=== PATIENT | female | born 1990 | race Caucasian/White ===

== ENCOUNTER 2017-11-09 14:10 | Inpatient (IN) | payer OTHER ==
[2017-11-09] MEDS: LACTATED RINGER'S 1,000 ML IV (16:26)
[2017-11-09] MEDS: BETAMET NA PHOS/AC(6 MG/ML) 5ML INJ IM (16:39)
[2017-11-09 16:49] LABS: ADD MAN DIFF? NO
[2017-11-09 16:56] LABS: BASOPHIL # 0.1 10^3/ul (0.0-0.1); BASOPHILS % 0.5 % (0.0-2.0); EOSINOPHILS # 0.1 10^3/ul (0.0-0.5); EOSINOPHILS % 0.6 % (0.0-7.0); HEMATOCRIT 40.1 % (37.0-47.0); HEMOGLOBIN 13.6 g/dl (12.0-16.0); LYMPHOCYTES # 1.7 10^3/ul (0.8-2.9); LYMPHOCYTES % 15.8 % (15.0-51.0); MEAN CORPUSCULAR HEMOGLOBIN 29.7 pg (29.0-33.0); MEAN CORPUSCULAR HGB CONC 33.9 g/dl (32.0-37.0); MEAN CORPUSCULAR VOLUME 87.6 fl (82.0-101.0); MEAN PLATELET VOLUME 9.3 fl (7.4-10.4); MONOCYTE # 0.8 10^3/ul (0.3-0.9); MONOCYTES % 7.3 % (0.0-11.0); NEUTROPHIL # 8.2 10^3/ul (1.6-7.5); NEUTROPHILS % 75.2 % (39.0-77.0); PLATELET COUNT 364 10^3/UL (140-415); RED BLOOD COUNT 4.58 10^6/ul (4.20-5.40); RED CELL DISTRIBUTION WIDTH 12.8 % (11.5-14.5)
[2017-11-09 16:56] LABS: WHITE BLOOD COUNT 10.9 10^3/ul (4.8-10.8)
[2017-11-09] MEDS: MAGNESIUM SULFATE 4 GM/100 ML 100 ML IV (16:58)
[2017-11-09 16:59] LABS: ADD UMIC NO; UR ASCORBIC ACID NEGATIVE (NEGATIVE); UR BILIRUBIN (Dip) NEGATIVE (NEGATIVE); UR BLOOD (Dip) NEGATIVE (NEGATIVE); UR CLARITY CLEAR (CLEAR); UR COLOR STRAW (YELLOW); UR GLUCOSE (Dip) NEGATIVE (NEGATIVE); UR KETONES (Dip) NEGATIVE (NEGATIVE); UR LEUKOCYTE ESTERASE (Dip) NEGATIVE Leu/ul (NEGATIVE); UR NITRITE (Dip) NEGATIVE (NEGATIVE); UR SPECIFIC GRAVITY (Dip) 1.009 (1.003-1.030); UR TOTAL PROTEIN (Dip) NEGATIVE (NEGATIVE); UR UROBILINOGEN (Dip) NEGATIVE (NEGATIVE)
[2017-11-09 17:16] LABS: INR 0.87; PROTIME 11.9 Sec (11.9-14.9); PT RATIO 0.9
[2017-11-09 17:17] LABS: PARTIAL THROMBOPLASTIN TIME 31.1 Sec (25.0-35.0)
[2017-11-09] MEDS: MAGNESIUM SULFATE 20 GM/500 ML 500 ML IV (17:25)
[2017-11-09 17:30] LABS: ALANINE AMINOTRANSFERASE 27 IU/L (13-69); ALBUMIN/GLOBULIN RATIO 1.02; ALKALINE PHOSPHATASE 107 IU/L (42-121); ANION GAP 16 (8-16); ASPARTATE AMINO TRANSFERASE 23 IU/L (15-46); BLOOD UREA NITROGEN 8 mg/dl (7-20); CALCIUM 9.7 mg/dl (8.4-10.2); CARBON DIOXIDE 25 mmol/L (21-31); CHLORIDE 104 mmol/L (97-110); CREATININE 0.54 mg/dl (0.44-1.00); GLUCOSE 92 mg/dl (70-220); POTASSIUM 3.7 mmol/L (3.5-5.1); SODIUM 141 mmol/L (135-144); TOTAL PROTEIN 7.9 g/dl (6.1-8.1); URIC ACID 5.5 mg/dl (3.1-7.9)
[2017-11-09 18:01] LABS: HEPATITIS B SURFACE ANTIGEN NEGATIVE (NEGATIVE)
[2017-11-09 18:53] LABS: MAGNESIUM 4.2 mg/dl (1.7-2.5)
[2017-11-10 01:32] LABS: MAGNESIUM 5.5 mg/dl (1.7-2.5)
[2017-11-10] MEDS: MAGNESIUM SULFATE 20 GM/500 ML 500 ML IV (03:38)
[2017-11-10] MEDS: LACTATED RINGER'S 1,000 ML IV ×2 (05:01→15:46)
[2017-11-10 07:23] LABS: MAGNESIUM 5.9 mg/dl (1.7-2.5)
[2017-11-10] MEDS: ACETAMINOPHEN 325 MG TAB PO (11:00)
[2017-11-10 15:25] LABS: RAPID PLASMA REAGIN NONREACTIVE (NR)
[2017-11-10] MEDS: BETAMET NA PHOS/AC(6 MG/ML) 5ML INJ IM (16:45)
[2017-11-10 18:39] LABS: COLLECTION PERIOD 24 hrs; SCRET 0.54 mg/dl (0.44-1.00); VOLUME 5200 ml/24hrs
[2017-11-10 18:40] LABS: CREATININE CLEARANCE 173.3 mls/min (84.0-162.0); CREATININE,URINE RANDOM 25.91 mg/dl (20-320)
[2017-11-10 18:44] LABS: VOLUME 5200 mls
[2017-11-10 18:48] LABS: COLLECTION PERIOD 24 hrs
[2017-11-10 23:18] LABS: ADD MAN DIFF? NO
[2017-11-10 23:24] LABS: BASOPHILS % 0.1 % (0.0-2.0); HEMATOCRIT 37.5 % (37.0-47.0); HEMOGLOBIN 12.8 g/dl (12.0-16.0); LYMPHOCYTES % 6.9 % (15.0-51.0); MEAN CORPUSCULAR HEMOGLOBIN 30.1 pg (29.0-33.0); MEAN CORPUSCULAR HGB CONC 34.1 g/dl (32.0-37.0); MEAN CORPUSCULAR VOLUME 88.2 fl (82.0-101.0); MEAN PLATELET VOLUME 9.2 fl (7.4-10.4); MONOCYTE # 0.3 10^3/ul (0.3-0.9); MONOCYTES % 1.9 % (0.0-11.0); NEUTROPHIL # 13.5 10^3/ul (1.6-7.5); PLATELET COUNT 398 10^3/UL (140-415); RED BLOOD COUNT 4.25 10^6/ul (4.20-5.40); RED CELL DISTRIBUTION WIDTH 12.8 % (11.5-14.5)
[2017-11-10 23:43] LABS: ALANINE AMINOTRANSFERASE 22 IU/L (13-69); ALBUMIN 3.8 g/dl (3.3-4.9); ALBUMIN/GLOBULIN RATIO 1.05; ALKALINE PHOSPHATASE 112 IU/L (42-121); ANION GAP 19 (8-16); ASPARTATE AMINO TRANSFERASE 23 IU/L (15-46); BLOOD UREA NITROGEN 9 mg/dl (7-20); CALCIUM 9.1 mg/dl (8.4-10.2); CARBON DIOXIDE 20 mmol/L (21-31); CHLORIDE 105 mmol/L (97-110); CREATININE 0.55 mg/dl (0.44-1.00); GLUCOSE 146 mg/dl (70-220); POTASSIUM 4.3 mmol/L (3.5-5.1); SODIUM 140 mmol/L (135-144); TOTAL PROTEIN 7.4 g/dl (6.1-8.1); URIC ACID 6.2 mg/dl (3.1-7.9)
[2017-11-11] LABS: INR 0.82; PROTIME 11.4 Sec (11.9-14.9); PT RATIO 0.9
[2017-11-11 00:01] LABS: PARTIAL THROMBOPLASTIN TIME 29.9 Sec (25.0-35.0)
[2017-11-11 00:24] LABS: ADD UMIC NO; UR ASCORBIC ACID NEGATIVE (NEGATIVE); UR BILIRUBIN (Dip) NEGATIVE (NEGATIVE); UR BLOOD (Dip) NEGATIVE (NEGATIVE); UR CLARITY CLEAR (CLEAR); UR COLOR STRAW (YELLOW); UR GLUCOSE (Dip) NEGATIVE (NEGATIVE); UR KETONES (Dip) TRACE mg/dL (NEGATIVE); UR LEUKOCYTE ESTERASE (Dip) NEGATIVE Leu/ul (NEGATIVE); UR NITRITE (Dip) NEGATIVE (NEGATIVE); UR SPECIFIC GRAVITY (Dip) 1.009 (1.003-1.030); UR TOTAL PROTEIN (Dip) NEGATIVE (NEGATIVE); UR UROBILINOGEN (Dip) NEGATIVE (NEGATIVE)
[2017-11-11] MEDS: LACTATED RINGER'S 1,000 ML IV (00:46)
[2017-11-13 10:26] LABS: ADD UMIC YES; UR ASCORBIC ACID NEGATIVE (NEGATIVE); UR BACTERIA FEW /HPF (NONE SEEN); UR BILIRUBIN (Dip) NEGATIVE (NEGATIVE); UR BLOOD (Dip) NEGATIVE (NEGATIVE); UR CLARITY SLIGHTLY CLOUDY (CLEAR); UR COLOR YELLOW (YELLOW); UR GLUCOSE (Dip) NEGATIVE (NEGATIVE); UR KETONES (Dip) NEGATIVE (NEGATIVE); UR LEUKOCYTE ESTERASE (Dip) 2+ Leu/ul (NEGATIVE); UR NITRITE (Dip) NEGATIVE (NEGATIVE); UR RBC 1 /HPF (0-5); UR SQUAMOUS EPITHELIAL CELL FEW /HPF (FEW); UR TOTAL PROTEIN (Dip) NEGATIVE (NEGATIVE); UR UROBILINOGEN (Dip) NEGATIVE (NEGATIVE); UR WBC 3 /HPF (0-5)
[2017-11-13 13:49] LABS: ADD MAN DIFF? NO
[2017-11-13 13:57] LABS: WHITE BLOOD COUNT 16.1 10^3/ul (4.8-10.8)
[2017-11-13 13:57] LABS: BASOPHIL # 0.1 10^3/ul (0.0-0.1); BASOPHILS % 0.3 % (0.0-2.0); EOSINOPHILS # 0.1 10^3/ul (0.0-0.5); EOSINOPHILS % 0.4 % (0.0-7.0); HEMATOCRIT 41.1 % (37.0-47.0); HEMOGLOBIN 14.2 g/dl (12.0-16.0); LYMPHOCYTES # 2.7 10^3/ul (0.8-2.9); LYMPHOCYTES % 16.6 % (15.0-51.0); MEAN CORPUSCULAR HEMOGLOBIN 30.1 pg (29.0-33.0); MEAN CORPUSCULAR HGB CONC 34.5 g/dl (32.0-37.0); MEAN CORPUSCULAR VOLUME 87.1 fl (82.0-101.0); MEAN PLATELET VOLUME 9.5 fl (7.4-10.4); MONOCYTE # 1.2 10^3/ul (0.3-0.9); MONOCYTES % 7.4 % (0.0-11.0); NEUTROPHIL # 11.9 10^3/ul (1.6-7.5); PLATELET COUNT 448 10^3/UL (140-415); RED BLOOD COUNT 4.72 10^6/ul (4.20-5.40); RED CELL DISTRIBUTION WIDTH 12.7 % (11.5-14.5)
[2017-11-13 14:14] LABS: INR 0.84; PROTIME 11.6 Sec (11.9-14.9); PT RATIO 0.9
[2017-11-13 14:15] LABS: PARTIAL THROMBOPLASTIN TIME 29.9 Sec (25.0-35.0)
[2017-11-13 14:17] LABS: URIC ACID 6.9 mg/dl (3.1-7.9)
[2017-11-13 14:18] LABS: ALANINE AMINOTRANSFERASE 23 IU/L (13-69); ALBUMIN 4.2 g/dl (3.3-4.9); ALBUMIN/GLOBULIN RATIO 1.13; ALKALINE PHOSPHATASE 111 IU/L (42-121); ANION GAP 21 (8-16); ASPARTATE AMINO TRANSFERASE 22 IU/L (15-46); BILIRUBIN,INDIRECT 0.1 mg/dl (0-1.1); BILIRUBIN,TOTAL 0.1 mg/dl (0.2-1.3); BLOOD UREA NITROGEN 14 mg/dl (7-20); CALCIUM 9.8 mg/dl (8.4-10.2); CARBON DIOXIDE 20 mmol/L (21-31); CHLORIDE 99 mmol/L (97-110); CREATININE 0.58 mg/dl (0.44-1.00); GLUCOSE 98 mg/dl (70-220); POTASSIUM 4.1 mmol/L (3.5-5.1); SODIUM 136 mmol/L (135-144); TOTAL PROTEIN 7.9 g/dl (6.1-8.1)
[2017-11-13 16:49] LABS: FIBRIN SPLIT PRODUCT <10 ug/ml (<10)
[2017-11-14 09:04] LABS: ADD MAN DIFF? NO
[2017-11-14 09:25] LABS: BASOPHILS % 0.3 % (0.0-2.0); EOSINOPHILS # 0.1 10^3/ul (0.0-0.5); EOSINOPHILS % 0.5 % (0.0-7.0); HEMATOCRIT 39.6 % (37.0-47.0); HEMOGLOBIN 13.6 g/dl (12.0-16.0); LYMPHOCYTES # 2.2 10^3/ul (0.8-2.9); LYMPHOCYTES % 16.6 % (15.0-51.0); MEAN CORPUSCULAR HEMOGLOBIN 30.2 pg (29.0-33.0); MEAN CORPUSCULAR HGB CONC 34.3 g/dl (32.0-37.0); MEAN CORPUSCULAR VOLUME 87.8 fl (82.0-101.0); MEAN PLATELET VOLUME 9.3 fl (7.4-10.4); MONOCYTE # 1.1 10^3/ul (0.3-0.9); MONOCYTES % 8.1 % (0.0-11.0); NEUTROPHIL # 9.7 10^3/ul (1.6-7.5); NEUTROPHILS % 73.4 % (39.0-77.0); PLATELET COUNT 420 10^3/UL (140-415); RED BLOOD COUNT 4.51 10^6/ul (4.20-5.40); RED CELL DISTRIBUTION WIDTH 12.8 % (11.5-14.5)
[2017-11-14 09:25] LABS: WHITE BLOOD COUNT 13.2 10^3/ul (4.8-10.8)
[2017-11-14] MEDS: FERROUS SULFATE (EC) 325 MG TAB PO (09:25)
[2017-11-14] MEDS: DOCUSATE SODIUM 100 MG CAP PO (09:25)
[2017-11-14] MEDS: PRENATAL VITAMIN PO (09:25)
[2017-11-14] MEDS: ASPIRIN 81 MG TAB PO (09:28)
[2017-11-14 09:42] LABS: ALANINE AMINOTRANSFERASE 25 IU/L (13-69); ALBUMIN/GLOBULIN RATIO 1.17; ALKALINE PHOSPHATASE 115 IU/L (42-121); ANION GAP 16 (8-16); ASPARTATE AMINO TRANSFERASE 17 IU/L (15-46); BILIRUBIN,INDIRECT 0.3 mg/dl (0-1.1); BILIRUBIN,TOTAL 0.3 mg/dl (0.2-1.3); BLOOD UREA NITROGEN 14 mg/dl (7-20); CALCIUM 8.9 mg/dl (8.4-10.2); CARBON DIOXIDE 24 mmol/L (21-31); CHLORIDE 100 mmol/L (97-110); GLUCOSE 81 mg/dl (70-220); POTASSIUM 4.2 mmol/L (3.5-5.1); SODIUM 136 mmol/L (135-144); TOTAL PROTEIN 7.4 g/dl (6.1-8.1)
[2017-11-14] MEDS ORDERED: PNEUMOCOCCAL VACCINE 0.5 ML INJ (DISPENSING) IM* (23:00)
[2017-11-14] MEDS ORDERED: INFLUENZA VIRUS VACCINE 0.5 ML (DISPENSING) IM* (23:00)
[2017-11-15] MEDS: ASPIRIN 81 MG TAB PO (09:09)
[2017-11-15] MEDS: DOCUSATE SODIUM 100 MG CAP PO (09:09)
[2017-11-15] MEDS: PRENATAL VITAMIN PO (09:09)
[2017-11-15] MEDS: FERROUS SULFATE (EC) 325 MG TAB PO (09:09)
[2017-11-15] MEDS: INFLUENZA VIRUS VACCINE 0.5 ML (DISPENSING) IM* (09:10)
[2017-11-16] MEDS: PRENATAL VITAMIN PO (09:00)
[2017-11-16] MEDS: DOCUSATE SODIUM 100 MG CAP PO (09:48)
[2017-11-16] MEDS: FERROUS SULFATE (EC) 325 MG TAB PO (09:48)
[2017-11-16] MEDS: ASPIRIN 81 MG TAB PO (09:48)
[2017-11-17] MEDS: ASPIRIN 81 MG TAB PO (09:27)
[2017-11-17] MEDS: FERROUS SULFATE (EC) 325 MG TAB PO (09:27)
[2017-11-17] MEDS: DOCUSATE SODIUM 100 MG CAP PO (09:27)
[2017-11-17] MEDS: PRENATAL VITAMIN PO (09:27)
[2017-11-18] MEDS: DOCUSATE SODIUM 100 MG CAP PO (09:26)
[2017-11-18] MEDS: ASPIRIN 81 MG TAB PO (09:26)
[2017-11-18] MEDS: FERROUS SULFATE (EC) 325 MG TAB PO (09:26)
[2017-11-18] MEDS: PRENATAL VITAMIN PO (09:26)
[2017-11-19] MEDS: PRENATAL VITAMIN PO (09:00)
[2017-11-19] MEDS: DOCUSATE SODIUM 100 MG CAP PO (09:00)
[2017-11-19] MEDS: ASPIRIN 81 MG TAB PO (09:01)
[2017-11-19] MEDS: FERROUS SULFATE (EC) 325 MG TAB PO (09:01)
[2017-11-20] MEDS: ASPIRIN 81 MG TAB PO (08:32)
[2017-11-20] MEDS: FERROUS SULFATE (EC) 325 MG TAB PO (08:32)
[2017-11-20] MEDS: DOCUSATE SODIUM 100 MG CAP PO (08:32)
[2017-11-20] MEDS: PRENATAL VITAMIN PO (08:32)
[2017-11-21] MEDS: PRENATAL VITAMIN PO (09:04)
[2017-11-21] MEDS: DOCUSATE SODIUM 100 MG CAP PO (09:04)
[2017-11-21] MEDS: ASPIRIN 81 MG TAB PO (09:04)
[2017-11-21] MEDS: FERROUS SULFATE (EC) 325 MG TAB PO (09:04)
[2017-11-22] MEDS: PRENATAL VITAMIN PO (08:55)
[2017-11-22] MEDS: FERROUS SULFATE (EC) 325 MG TAB PO (08:55)
[2017-11-22] MEDS: DOCUSATE SODIUM 100 MG CAP PO (08:55)
[2017-11-22] MEDS: ASPIRIN 81 MG TAB PO (08:55)
[2017-11-23] MEDS: FERROUS SULFATE (EC) 325 MG TAB PO (09:17)
[2017-11-23] MEDS: DOCUSATE SODIUM 100 MG CAP PO (09:17)
[2017-11-23] MEDS: ASPIRIN 81 MG TAB PO (09:17)
[2017-11-23] MEDS: PRENATAL VITAMIN PO (09:17)
[2017-11-24] MEDS: PRENATAL VITAMIN PO (09:14)
[2017-11-24] MEDS: FERROUS SULFATE (EC) 325 MG TAB PO (09:14)
[2017-11-24] MEDS: DOCUSATE SODIUM 100 MG CAP PO (09:14)
[2017-11-24] MEDS: ASPIRIN 81 MG TAB PO (09:14)
[2017-11-25] MEDS: PRENATAL VITAMIN PO (08:19)
[2017-11-25] MEDS: DOCUSATE SODIUM 100 MG CAP PO (08:20)
[2017-11-25] MEDS: FERROUS SULFATE (EC) 325 MG TAB PO (08:20)
[2017-11-26] MEDS: PRENATAL VITAMIN PO (08:46)
[2017-11-26] MEDS: DOCUSATE SODIUM 100 MG CAP PO (08:46)
[2017-11-26] MEDS: FERROUS SULFATE (EC) 325 MG TAB PO (08:46)
[2017-11-27] MEDS: PRENATAL VITAMIN PO (09:10)
[2017-11-27] MEDS: FERROUS SULFATE (EC) 325 MG TAB PO (09:10)
[2017-11-27] MEDS: DOCUSATE SODIUM 100 MG CAP PO (09:10)
[2017-11-28] MEDS: PRENATAL VITAMIN PO (08:39)
[2017-11-28] MEDS: DOCUSATE SODIUM 100 MG CAP PO (08:40)
[2017-11-28] MEDS: FERROUS SULFATE (EC) 325 MG TAB PO (08:40)
[2017-11-28 12:06] LABS: ADD MAN DIFF? NO
[2017-11-28 12:24] LABS: BASOPHILS % 0.2 % (0.0-2.0); EOSINOPHILS # 0.1 10^3/ul (0.0-0.5); EOSINOPHILS % 0.5 % (0.0-7.0); HEMATOCRIT 39.7 % (37.0-47.0); HEMOGLOBIN 13.6 g/dl (12.0-16.0); LYMPHOCYTES # 1.6 10^3/ul (0.8-2.9); LYMPHOCYTES % 15.6 % (15.0-51.0); MEAN CORPUSCULAR HEMOGLOBIN 30.1 pg (29.0-33.0); MEAN CORPUSCULAR HGB CONC 34.3 g/dl (32.0-37.0); MEAN CORPUSCULAR VOLUME 87.8 fl (82.0-101.0); MEAN PLATELET VOLUME 9.4 fl (7.4-10.4); MONOCYTE # 0.8 10^3/ul (0.3-0.9); MONOCYTES % 7.3 % (0.0-11.0); NEUTROPHIL # 7.8 10^3/ul (1.6-7.5); NEUTROPHILS % 75.8 % (39.0-77.0); PLATELET COUNT 329 10^3/UL (140-415); RED BLOOD COUNT 4.52 10^6/ul (4.20-5.40); RED CELL DISTRIBUTION WIDTH 12.7 % (11.5-14.5)
[2017-11-28 12:24] LABS: WHITE BLOOD COUNT 10.3 10^3/ul (4.8-10.8)
[2017-11-28 12:57] LABS: INR 0.85; PROTIME 11.7 Sec (11.9-14.9); PT RATIO 0.9
[2017-11-28 12:58] LABS: ALANINE AMINOTRANSFERASE 23 IU/L (13-69); ALBUMIN 3.8 g/dl (3.3-4.9); ALBUMIN/GLOBULIN RATIO 1.15; ALKALINE PHOSPHATASE 124 IU/L (42-121); ANION GAP 15 (8-16); ASPARTATE AMINO TRANSFERASE 18 IU/L (15-46); BLOOD UREA NITROGEN 10 mg/dl (7-20); CALCIUM 9.3 mg/dl (8.4-10.2); CARBON DIOXIDE 23 mmol/L (21-31); CHLORIDE 100 mmol/L (97-110); CREATININE 0.51 mg/dl (0.44-1.00); GLUCOSE 90 mg/dl (70-220); PARTIAL THROMBOPLASTIN TIME 30.9 Sec (25.0-35.0); POTASSIUM 3.7 mmol/L (3.5-5.1); SODIUM 134 mmol/L (135-144); TOTAL PROTEIN 7.1 g/dl (6.1-8.1)
[2017-11-28] MEDS ORDERED: CARBOPROST 250 MCG INJ IM (18:00)
[2017-11-28] MEDS ORDERED: MISOPROSTOL 200 MCG TAB PR (18:00)
[2017-11-28] MEDS ORDERED: METHYLERGONOVINE 0.2 MG INJ IM (18:00)
[2017-11-28] MEDS ORDERED: OXYTOCIN 30 UNITS/LR 500 ML IV (18:00)
[2017-11-29] MEDS ORDERED: CLINDAMYCIN 900 MG/D5W (PMX) 50 ML IV (05:00)
[2017-11-29] MEDS ORDERED: OXYTOCIN 30 UNITS/LR 500 ML IV ×2 (05:00→13:30)
[2017-11-29] MEDS ORDERED: GENTAMICIN 290 MG in SOD CHLORIDE 0.9% 100 ML IVPB (06:00)
[2017-11-29] MEDS ORDERED: OXYTOCIN 30 UNITS/LR 500 ML BAG IV (07:00)
[2017-11-29] MEDS: LACTATED RINGER'S 500 ML IV (07:38)
[2017-11-29] MEDS: DOCUSATE SODIUM 100 MG CAP PO (08:47)
[2017-11-29] MEDS ORDERED: PHENYLephrine (100 MCG/ML) 5ML SYG (09:45)
[2017-11-29] MEDS ORDERED: ONDANSETRON 4 MG INJ (09:45)
[2017-11-29] MEDS ORDERED: morphine SULFATE/PF (10 MG/10 ML) INJ (09:45)
[2017-11-29] MEDS ORDERED: OXYTOCIN 10 UNIT INJ (09:45)
[2017-11-29] MEDS: LACTATED RINGER'S 1,000 ML IV ×3 (11:53→21:20)
[2017-11-29] MEDS ORDERED: METHYLERGONOVINE 0.2 MG INJ IM (13:30)
[2017-11-29] MEDS ORDERED: NA PHOSPHATE/BIPHOS 133 ML ENEMA PR (13:30)
[2017-11-29] MEDS ORDERED: MISOPROSTOL 200 MCG TAB PR (13:30)
[2017-11-29] MEDS ORDERED: CARBOPROST 250 MCG INJ IM (13:30)
[2017-11-29] MEDS ORDERED: OXYCODONE/ACETAMINOPHEN (5/325) TAB PO (13:30)
[2017-11-29] MEDS ORDERED: METHYLERGONOVINE 0.2 MG TAB PO (13:30)
[2017-11-29] MEDS: KETOROLAC 30 MG INJ IV (14:18)
[2017-11-29] MEDS ORDERED: DIPHENHYDRAMINE 50 MG INJ IV (15:04)
[2017-11-29] MEDS ORDERED: NALOXONE (0.4 MG/ML) INJ IV (15:04)
[2017-11-29] MEDS ORDERED: KETOROLAC 30 MG INJ IV (15:04)
[2017-11-29] MEDS ORDERED: ONDANSETRON 4 MG INJ IV (15:04)
[2017-11-29] MEDS ORDERED: morphine 2 MG INJ IV (15:04)
[2017-11-29] MEDS: OXYTOCIN 30 UNITS/LR 500 ML IV (15:26)
[2017-11-30] MEDS: LACTATED RINGER'S 1,000 ML IV (01:24)
[2017-11-30] MEDS: KETOROLAC 30 MG INJ IV ×2 (01:24→09:22)
[2017-11-30] MEDS: LANOLIN 7 GM TUBE TOP (09:23)
[2017-11-30 10:44] LABS: ADD MAN DIFF? NO
[2017-11-30 10:58] LABS: BASOPHILS % 0.2 % (0.0-2.0); EOSINOPHILS # 0.1 10^3/ul (0.0-0.5); EOSINOPHILS % 1.1 % (0.0-7.0); HEMATOCRIT 36.2 % (37.0-47.0); HEMOGLOBIN 12.2 g/dl (12.0-16.0); LYMPHOCYTES # 1.2 10^3/ul (0.8-2.9); LYMPHOCYTES % 9.1 % (15.0-51.0); MEAN CORPUSCULAR HGB CONC 33.7 g/dl (32.0-37.0); MEAN CORPUSCULAR VOLUME 88.9 fl (82.0-101.0); MONOCYTE # 0.6 10^3/ul (0.3-0.9); MONOCYTES % 4.8 % (0.0-11.0); NEUTROPHIL # 10.9 10^3/ul (1.6-7.5); NEUTROPHILS % 84.3 % (39.0-77.0); PLATELET COUNT 285 10^3/UL (140-415); RED BLOOD COUNT 4.07 10^6/ul (4.20-5.40); RED CELL DISTRIBUTION WIDTH 12.9 % (11.5-14.5)
[2017-11-30] MEDS: IBUPROFEN 600 MG TAB PO ×3 (13:53→23:52)
[2017-11-30] MEDS: ACETAMINOPHEN 500 MG TAB PO (21:29)
[2017-12-01] MEDS: OXYCODONE/ACETAMINOPHEN (5/325) TAB PO ×3 (05:22→23:02)
[2017-12-01] MEDS: IBUPROFEN 600 MG TAB PO ×3 (05:22→23:02)
[2017-12-01] MEDS: SENNA/DOCUSATE NA (8.6MG/50MG) TAB PO (14:38)
[2017-12-01] MEDS: BISACODYL (EC) 5 MG TAB PO (14:38)
[2017-12-02] MEDS: IBUPROFEN 600 MG TAB PO (05:17)
[2017-12-02] MEDS: OXYCODONE/ACETAMINOPHEN (5/325) TAB PO (05:18)
[2017-12-02] MEDS: DIPHTH/TET/ACEL PERTUSS (ADULT) 0.5 ML VIAL IM* (09:49)
== END 2017-12-02 16:13 | disposition home or self-care (01) | DRG 765 ==
LOC: L-D 14:10 → PP1 11-13 18:36 → L-D 11-29 08:35 → PP1 11-29 13:52
PROC: 10D00Z1 Extraction of Products of Conception, Low, Open Approach (ICD-10-PCS; principal; 2017-11-29)
PROC: 0UT70ZZ Resection of Bilateral Fallopian Tubes, Open Approach (ICD-10-PCS; 2017-11-29)
DX: O34.211 Maternal care for low transverse scar from previous cesarean delivery (principal); O60.14X0 Preterm labor third trimester with preterm delivery third trimester, not applicable or unspecified; O36.5930 Maternal care for other known or suspected poor fetal growth, third trimester, not applicable or unspecified; O13.4 Gestational [pregnancy-induced] hypertension without significant proteinuria, complicating childbirth; O14.94 Unspecified pre-eclampsia, complicating childbirth; Z30.2 Encounter for sterilization; Z37.0 Single live birth; Z3A.34 34 weeks gestation of pregnancy
CPT/HCPCS: 76816; 76818; 76820; 80053; 81001; 81003; 82575; 83735; 84156; 84560; 85025; 85362; 85384; 85610; 85730; 86592; 86850; 86900; 86901; 87086; 87340; 88302; 90686; 90715; 90732; 94760

== ENCOUNTER 2019-07-17 15:22 | Emergency (ER) | payer OTHER ==
[2019-07-17] MEDS ORDERED: KETOROLAC 60 MG INJ IM (18:56)
[2019-07-17] MEDS: HYDROCODONE/APAP (5/325) TAB PO (19:16)
[2019-07-17] MEDS: IBUPROFEN 600 MG TAB PO (19:16)
== END 2019-07-17 20:06 | disposition home or self-care (01) ==
LOC: FTE 15:22
DX: M54.30 Sciatica, unspecified side (principal); I10 Essential (primary) hypertension
CPT/HCPCS: 81025; 99283